=== PATIENT | male | born 1990 | race African-American/Black ===

== ENCOUNTER 2021-08-21 23:15 | Emergency (ER) | payer OTHER, SELFPAY ==
[2021-08-21 23:23] VITALS: BP 139/65; PULSE 74; RESP 16; TEMP 36.8; O2SAT 98; BMI 28.0
--- NOTE | 2021-08-22 00:10 | ED.MALEGU ---
HPI - Male Genitourinary General Chief complaint: Urogenital-Male Stated complaint: hernia Time Seen by Provider: 08/22/21 00:10 Source: patient Mode of arrival: ambulatory Limitations: no limitations History of Present Illness HPI Narrative: Patient noticed since the afternoon today pain in the left testicle especially on standing and palpation no trauma no urinary complaints no history of STDs no fever no chills Related Data Previous Rx's Medication Instructions Recorded ciprofloxacin HCl 500 mg tablet 500 mg PO BID #20 tab 08/22/21 (Cipro) doxycycline hyclate 100 mg tablet 100 mg PO BID #20 tab 08/22/21 ibuprofen 600 mg tablet 600 mg PO Q6H PRN #20 tab 08/22/21 Allergies Allergy/AdvReac Type Severity Reaction Status Date / Time No Known Allergies Allergy Unverified 07/20/20 17:25 [No Known Allergies*] Review of Systems Review of Systems: Yes all other systems are reviewed and are negative PMFSH Past Medical History Medical History No known health problems Social History Social History Advance Directives: No Advance Directives Information Provided: No Physical Exam Vital Signs: Vital Signs: Last Vital Signs Temp 98.2 F 08/21/21 23:23 Pulse 74 08/21/21 23:23 Resp 16 08/21/21 23:23 BP 139/65 08/21/21 23:23 Pulse Ox 98 08/21/21 23:23 Body Mass Index 28.0 Const: General: healthy appearing and comfortable Orientation/consciousness: patient oriented x3 Resp: Effort & Inspection: normal respiratory effort Auscultation: clear to auscultation bilaterally Cardio: Palpation: normal PMI Rate: regular rate Rhythm: regular rhythm Heart sounds: S1 normal heart sound present and S2 normal heart sound present GI: Inspection: Yes normal to inspection Palpation (GI): Soft to palpation and nontender : Male General Exam: Yes normal external exam and No hernia Penis: normal penis and circumcised Meatus: meatus normal Scrotum: scrotum normal Testes: epididymal tenderness on the left Neuro: General: patient oriented x3 MDM - Male Genitourinary MDM Narrative Medical decision making narrative: Patient clinically with left epididymitis treat with Cipro and doxycycline advised to have scrotal support check for GC chlamydia patient does not think has exposure to STDs, will hold for treatment for GC Discharge Plan Discharge Clinical Impression: Epididymitis Patient Disposition: Home, Self-Care Instructions: Epididymitis (ED) Additional Instructions: Take antibiotics as advised Scrotal support and pain medication as advised Follow-up with PCP if not better Prescriptions: New doxycycline hyclate 100 mg tablet 100 mg PO BID Qty: 20 RF: 0 ciprofloxacin HCl [Cipro] 500 mg tablet 500 mg PO BID Qty: 20 RF: 0 ibuprofen 600 mg tablet 600 mg PO Q6H PRN (Reason: pain) Qty: 20 RF: 0
[2021-08-22] MEDS: traMADoL HCL 50 MG TABLET PO (00:17)
[2021-08-22] MEDS: levoFLOXacin 500 MG TABLET PO (00:17)
[2021-08-22 01:02] LABS: Appearance Urine CLEAR; Color Urine YELLOW; Glucose Urine UA NEG (NEG); Leukocyte Esterase Urine NEG (NEG); Nitrite Urine NEG (NEG); Specific Gravity - Urine >= 1.030 (1.005-1.025); UACC Culture Trigger NO; Urine Blood TRACE (NEG); Urine Ketones NEG (NEG); Urine Protein NEG (NEG-TRACE)
[2021-08-22 01:09] VITALS: BP 122/74; PULSE 76; RESP 16; TEMP 36.6; O2SAT 98
[2021-08-22 01:09] LABS: Amorphous Sediment Urine TRACE /LPF; RBC Urine 0-2 /HPF (0); WBC Urine 0 /HPF (0-4)
[2021-08-22 11:14] LABS: CT PCR NOT DETECTED (Not Detect.); NG PCR NOT DETECTED (Not Detect.)
== END 2021-08-22 01:11 | disposition home or self-care (01) ==
PROVIDERS: Emergency Provider Internal Medicine
DX: N45.1 Epididymitis (principal)
CPT/HCPCS: 81001; 81003; 87491; 87591; 99283; 99284

== ENCOUNTER 2021-11-12 12:50 | Outpatient (REF) | payer OTHER, SELFPAY ==
[2021-11-12 15:06] LABS: Binax Internal Control QC Valid; Binax Now Covid-19 Ag Negative (Negative)
== END 2021-11-12 12:51 | disposition home or self-care (01) ==
LOC: HO.LAB 12:50
PROVIDERS: Visit Provider Internal Medicine
DX: Z20.822 Contact with and (suspected) exposure to COVID-19 (principal)
CPT/HCPCS: 36415; C9803

== ENCOUNTER 2022-03-08 06:12 | Emergency (ER) | payer SELFPAY ==
[2022-03-08 06:30] VITALS: BP 150/84; PULSE 83; RESP 20; TEMP 36.8; O2SAT 97; BMI 28.1
--- NOTE | 2022-03-08 06:57 | ED_ITS ---
HPI - General Adult General Chief complaint: General Medical Stated complaint: Dental abscess Time Seen by Provider: 03/08/22 06:57 History of Present Illness HPI narrative: Patient is a 32-year-old male presents today with having toothache for the last 4 days. There is no fever no chills. Pain worse with eating. Patient did not see a dentist. Presented to the ED for further evaluation. No significant past medical history. No allergies. Patient from home. Related Data Previous Rx's Medication Instructions Recorded ciprofloxacin HCl 500 mg tablet 500 mg PO BID #20 tab 08/22/21 (Cipro) doxycycline hyclate 100 mg tablet 100 mg PO BID #20 tab 08/22/21 ibuprofen 600 mg tablet 600 mg PO Q6H PRN #20 tab 08/22/21 ibuprofen 400 mg tablet 400 mg PO Q6H PRN #20 tab 03/08/22 penicillin V potassium 500 mg 500 mg PO TID 5 Days #15 tab 03/08/22 tablet Allergies Allergy/AdvReac Type Severity Reaction Status Date / Time No Known Allergies Allergy Unverified 07/20/20 17:25 [No Known Allergies*] Review of Systems Review of Systems: No fever no chills no systemic complaints Yes all other systems are reviewed and are negative [facility] Past Medical History Attestation statement: The following information was validated with the patient. Medical History No known health problems Social History Social History Advance Directives: No Physical Exam ED Vital Signs: Vital Signs - 24 hr 03/08/22 06:30 Temperature 98.2 F Pulse Rate 83 Respiratory Rate 20 Blood Pressure 150/84 H Pulse Oximetry 97 BMI result Body Mass Index 28.1 Appearance: Alert. Oriented X3. No acute distress. Eyes: Pupils equal, round and reactive to light. ENT: Pharynx normal. The upper right 2nd molar had some mild tenderness on palpation. Positive cavities noted. Posterior pharynx was normal. There is no erythema noted. Trachea is midline Neck: Normal inspection. Neck supple. No lymph nodes noted. No crepitus CVS: Normal heart rate and rhythm. Pulses normal. Normal S1 and S2 Respiratory: No respiratory distress. Breath sounds normal. No Wheezing. No rales Abdomen: Soft and nontender. No rigidity. No distention. good BS x4 Skin: Skin warm and dry. Normal skin color. Normal skin turgor. Extremities: No lower extremity edema. Neurovascular intact to all extremities. No Lacerations. No Rash Neuro: Oriented X 3. No motor deficit. No sensory deficit. Moving all extermities. No slurred speech Medical Decision Making MDM Narrative Medical decision making narrative: Positive dental cavities will go ahead and give antibiotics. Pain medications. In stable condition. Patient told to go to dental clinic. No difficulty swallowing. No difficulty with voice. Discharge Plan Discharge Clinical Impression: Dental caries Patient Disposition: Home, Self-Care Instructions: Toothache (ED) Prescriptions: New ibuprofen 400 mg tablet 400 mg PO Q6H PRN (Reason: pain) Qty: 20 0RF penicillin V potassium 500 mg tablet 500 mg PO TID 5 Days Qty: 15 0RF No Action doxycycline hyclate 100 mg tablet 100 mg PO BID Qty: 20 0RF ciprofloxacin HCl [Cipro] 500 mg tablet 500 mg PO BID Qty: 20 0RF ibuprofen 600 mg tablet 600 mg PO Q6H PRN (Reason: pain) Qty: 20 0RF Referrals: [facility] [Provider Group] (Follow-up with dentistry on an outpatient basis.)
== END 2022-03-08 07:24 | disposition home or self-care (01) ==
PROVIDERS: Emergency Provider Emergency Medicine Emergency Medical Services
DX: K02.9 Dental caries, unspecified (principal)
CPT/HCPCS: 99283

== ENCOUNTER 2022-07-20 00:26 | Emergency (ER) | payer MEDICAID, SELFPAY ==
[2022-07-20 01:28] VITALS: BP 139/92; PULSE 70; RESP 18; TEMP 36.7; O2SAT 100; BMI 28.8
[2022-07-20 06:27] VITALS: BP 114/60; PULSE 105; RESP 16; TEMP 36.6; O2SAT 99
--- NOTE | 2022-07-20 07:15 | ED.BACK ---
HPI - Back Pain/Injury General Chief Complaint: Back Pain/Injury Stated Complaint: Back spasm Time Seen by Provider: 07/20/22 07:15 Source: patient Mode of arrival: ambulatory Limitations: no limitations History of Present Illness HPI Narrative: Patient homeless comes here for diffuse back spasm for months no recent injury no weakness of the legs no paresthesia no fever or cough patient does not use any IV drugs no fever Related Data Previous Rx's Medication Instructions Recorded ciprofloxacin HCl 500 mg tablet 500 mg PO BID #20 tabs 08/22/21 (Cipro) doxycycline hyclate 100 mg tablet 100 mg PO BID #20 tabs 08/22/21 ibuprofen 600 mg tablet 600 mg PO Q6H PRN pain #20 tabs 08/22/21 ibuprofen 400 mg tablet 400 mg PO Q6H PRN pain #20 tabs 03/08/22 penicillin V potassium 500 mg 500 mg PO TID 5 days #15 tabs 03/08/22 tablet cyclobenzaprine 10 mg tablet 10 mg PO Q8H #20 tabs 07/20/22 ibuprofen 600 mg tablet 600 mg PO Q6H PRN Pain (Scale 07/20/22 Score 4-6) #30 tabs Allergies Allergy/AdvReac Type Severity Reaction Status Date / Time No Known Allergies Allergy Verified 07/20/22 01:31 [No Known Allergies*] Review of Systems Review of Systems: Yes all other systems are reviewed and are negative [facility] Past Medical History Medical History No known health problems Social History Social History Advance Directives: No Advance Directives Information Provided: No Physical Exam Vital Signs: Vital Signs: Last Vital Signs Temp 97.9 F 07/20/22 06:27 Pulse 105 H 07/20/22 06:27 Resp 16 07/20/22 06:27 BP 114/60 07/20/22 06:27 Pulse Ox 99 07/20/22 06:27 O2 Del Method 07/20/22 06:27 BMI result Body Mass Index 28.8 Appearance: Alert. Oriented X3. No acute distress. Eyes: PERRLA, No Nystagmus ENT: Pharynx normal. Oral Mucosa moist Neck: Normal inspection. Neck supple. CVS: Normal heart rate and rhythm. Pulses normal. Respiratory: No respiratory distress. Equal air entry bilateral, no wheezing/rales/rhonchi Abdomen: Soft and nontender. Bowel sounds are present, no mass palpable, no CVA tenderness Back: Diffuse tenderness, no focal spinal tenderness SLR negative bilaterally Skin: Skin warm and dry. Normal skin color. Normal skin turgor. Extremities: No lower extremity edema. No calf tenderness Neuro: Oriented X 3. No motor deficit. No sensory deficit. MDM - Back Pain/Injury MDM Narrative Medical decision making narrative: Patient homeless with multiple complaints no focal deficit discharge patient home on ibuprofen Lab Data Attestation: I reviewed the patient's lab results. Labs: Lab Results 07/20/22 Range/Units 07:27 COVID-19 (LYDIA) Negative (Negative) COVID-19 Clin Com See Note Discharge Plan Discharge Clinical Impression: Strain of lumbar region Patient Disposition: Home, Self-Care Instructions: Back Pain (ED) Additional Instructions: Drink plenty of fluids Pain medication muscle relaxant as advised Prescriptions: New cyclobenzaprine 10 mg tablet 10 mg PO Q8H Qty: 20 0RF ibuprofen 600 mg tablet 600 mg PO Q6H PRN (Reason: Pain (Scale Score 4-6)) Qty: 30 0RF No Action ibuprofen 400 mg tablet 400 mg PO Q6H PRN (Reason: pain) Qty: 20 0RF penicillin V potassium 500 mg tablet 500 mg PO TID 5 Days Qty: 15 0RF doxycycline hyclate 100 mg tablet 100 mg PO BID Qty: 20 0RF ciprofloxacin HCl [Cipro] 500 mg tablet 500 mg PO BID Qty: 20 0RF ibuprofen 600 mg tablet 600 mg PO Q6H PRN (Reason: pain) Qty: 20 0RF
[2022-07-20 07:48] LABS: COVID-19 Test Negative (Negative); IDNOW Serial# 16C4AD1C
[2022-07-20] MEDS: Ibuprofen 600 MG TABLET PO (08:13)
== END 2022-07-20 08:28 | disposition home or self-care (01) ==
PROVIDERS: Emergency Provider Internal Medicine
DX: S39.012A Strain of muscle, fascia and tendon of lower back, initial encounter (principal); X58.XXXA Exposure to other specified factors, initial encounter; Y93.9 Activity, unspecified; Y92.9 Unspecified place or not applicable; Y99.9 Unspecified external cause status; Z20.822 Contact with and (suspected) exposure to COVID-19
CPT/HCPCS: 87635; 99283